=== PATIENT | female | born 1950 | race Caucasian/White ===

== ENCOUNTER 2025-04-06 10:41 | Day surgery (SDC) | payer MEDICARE, OTHER ==
[~2025-04-06] VITALS: Ht 154.9 cm; Wt 61.6 kg
[~2025-04-06 10:41] MED LIST: ASPI81CH; BISHYD2.5; Balanced Salt Epinephrine Irrigation Solution 500 mL IR SCH; CALCAVITD; Moxifloxacin HCL 0.5 MG/0.1 ML 0.4MLSYR LEFTEYE SCH; Ondansetron 4 MG SoluTab MM PRN; PHENYLEPHRINE\\TROPICAMIDE\\TETRACAINE OPHTHALMIC DILATING SOLN LEFTEYE PRN; Povidone-Iodine 450 DROP/30 ML Solution LEFTEYE SCH; Povidone-Iodine 450 DROP/30 ML Solution ONE; Tetracaine HCl/Pf 0.5% Opth Soln 4 ml ONE; Triamcinolone Inj Susp 40 MG / ML 1ML Vial INJ SCH; Triamcinolone Inj Susp 40 MG / ML 1ML Vial ONE
--- NOTE | 2025-04-06 11:20 | NUR ---
04/06/25 1120 IRVING JOYCE resting with eyes clsoed upon entry to room, pt states "I think I was asleep"
--- NOTE | 2025-04-06 11:24 | NUR ---
04/06/25 1124 Michelle Coates VITALS AT 1123 BP: 130/93 P:57 O2: 95% WITH 10 LITERS OF BLOW BY OXYGEN
--- NOTE | 2025-04-06 12:54 | NUR ---
04/06/25 1254 Odell Carrera PT HAD IRREGULAR HEART RHYTHM IN OR, PER REPORT FROM FELISA RAMIREZ. PT DENIED CP, SOB, VILLARREAL, NAUSEA, WEAKNESS, VISUAL DISTURBANCE, AND OTHER SYMPTOMS. NONE WERE OBSERVED. DR. STEWART WAS CONSULTED AND ORDERED 12 LEAD EKG. EKG WAS REVIEWED BY DR. STEWART. DR. STEWART AND DR. MEDEL APPROVED D/C. PT WAS GIVEN COPY OF 12 LEAD EKG. PT AND HER DAUGHTER WERE INSTRUCTED TO FOLLOW UP WITH PCP IMMEDIATELY FOLLOWING D/C AND SEEK EMERGENCY MEDICAL CARE FOR ANY OF THE AFOREMENTIONED SYMPTOMS.
[2025-04-06 13:00] VITALS: BP 136/80
== END 2025-04-06 12:38 | disposition home or self-care (01) ==
LOC: ORSCSDS 10:41
PROVIDERS: Ophthalmology
PROC: 08RK3JZ Replacement of Left Lens with Synthetic Substitute, Percutaneous Approach (ICD-10-PCS; principal; 2025-04-06 12:00)
DX: H25.812 Combined forms of age-related cataract, left eye (principal)
CPT/HCPCS: A9270; J3301; V2632

== ENCOUNTER 2025-04-20 09:06 | Day surgery (SDC) | payer MEDICARE, OTHER ==
[~2025-04-20] VITALS: Ht 154.9 cm; Wt 61.7 kg
[~2025-04-20 09:06] MED LIST changes: -Moxifloxacin HCL 0.5 MG/0.1 ML 0.4MLSYR LEFTEYE SCH; +Moxifloxacin HCL 0.5 MG/0.1 ML 0.4MLSYR RIGHTEYE SCH; -PHENYLEPHRINE\\TROPICAMIDE\\TETRACAINE OPHTHALMIC DILATING SOLN LEFTEYE PRN; +PHENYLEPHRINE\\TROPICAMIDE\\TETRACAINE OPHTHALMIC DILATING SOLN RIGHTEYE PRN; -Povidone-Iodine 450 DROP/30 ML Solution LEFTEYE SCH; +Povidone-Iodine 450 DROP/30 ML Solution RIGHTEYE SCH
[2025-04-20] MEDS ORDERED: ELIQUIS5 M2 PO (09:32)
--- NOTE | 2025-04-20 10:00 | NUR ---
04/20/25 1000 Meseret Monge 54 HR 97% O2 118/95 BP 16 RR
[2025-04-20] MEDS ORDERED: Tetracaine HCl 0.5% Opth Soln 15 ml RIGHTEYE ONE (10:04)
[2025-04-20 10:18] VITALS: BP 90/80
== END 2025-04-20 10:30 | disposition home or self-care (01) ==
LOC: ORSCSDS 09:06
PROVIDERS: Ophthalmology
PROC: 08RJ3JZ Replacement of Right Lens with Synthetic Substitute, Percutaneous Approach (ICD-10-PCS; principal; 2025-04-20 10:30)
DX: E11.36 Type 2 diabetes mellitus with diabetic cataract (principal); H25.811 Combined forms of age-related cataract, right eye; H35.3111 Nonexudative age-related macular degeneration, right eye, early dry stage; Z96.1 Presence of intraocular lens; I10 Essential (primary) hypertension; E07.9 Disorder of thyroid, unspecified; Z79.82 Long term (current) use of aspirin; Z79.85 Long-term (current) use of injectable non-insulin antidiabetic drugs; Z79.899 Other long term (current) drug therapy
CPT/HCPCS: A9270; J3301; V2632